=== PATIENT | female | born 1965 | race Caucasian/White ===

== ENCOUNTER 2017-04-03 15:41 | Outpatient (CLI) | payer OTHER ==
--- NOTE | 2017-04-04 16:30 | Mammography Report ---
DIGITAL SCREENING MAMMOGRAM: 04/03/2017 CLINICAL INDICATION: A 51-year-old, for screening. COMPARISON: 09/2010, 12/2008, 05/2007. TECHNIQUE: Routine CC and MLO projections were obtained of the breasts. FINDINGS: The breasts again demonstrate scattered fibroglandular densities bilaterally. A few coarse , typically benign calcifications are present. No suspicious masses, clustered microcalcifications, o r regions of architectural distortion are identified. IMPRESSION: BENIGN FINDINGS. RECOMMENDATION: ROUTINE ANNUAL SCREENING UNLESS OTHERWISE CLINICALLY INDICATED. BIRADS CATEGORY 2-BENIGN FINDINGS. STANDARD QUALIFYING STATEMENTS 1. This examination was reviewed with the aid of Computer-Aided Detection (CAD). 2. A negative or benign imaging report should not delay biopsy if clinically suspicious findings are present. Consider surgical consultation if warranted. More than 5% of cancers are not identified by i maging. 3. Dense breasts may obscure an underlying neoplasm. JOB #: [id number] EXT JOB #:[id number]
== END 2017-04-03 15:42 | disposition home or self-care (01) ==
LOC: DI 15:41
PROVIDERS: ATTEND Internal Medicine
DX: Z12.31 Encounter for screening mammogram for malignant neoplasm of breast (principal)
CPT/HCPCS: 77067

== ENCOUNTER 2017-09-20 06:11 | Day surgery (SDC) | payer OTHER ==
[2017-09-20] MEDS ORDERED: LACTATED RINGERS 1,000 ML IV ONE (06:46)
[2017-09-20] MEDS ORDERED: INSULIN REGULAR HUMAN 100 UNIT/1 ML 10 ML MDV ONE ×2 (07:30→08:37)
[2017-09-20] MEDS ORDERED: fentaNYL 100 MCG/2 ML VIAL IVP ONE (07:34)
[2017-09-20] MEDS ORDERED: MIDAZOLAM 2 MG/2 ML VIAL IVP ONE (07:34)
[2017-09-20 08:50] VITALS: BP 125/58
== END 2017-09-20 06:12 | disposition home or self-care (01) ==
LOC: SDS 06:11
PROVIDERS: ATTEND Surgery
PROC: 0DBN8ZX Excision of Sigmoid Colon, Via Natural or Artificial Opening Endoscopic, Diagnostic (ICD-10-PCS; principal; 2017-09-20 07:30)
DX: R19.7 Diarrhea, unspecified (principal); K57.30 Diverticulosis of large intestine without perforation or abscess without bleeding; K64.8 Other hemorrhoids; K63.5 Polyp of colon; E11.9 Type 2 diabetes mellitus without complications; Z79.4 Long term (current) use of insulin; K21.9 Gastro-esophageal reflux disease without esophagitis; Z87.891 Personal history of nicotine dependence
CPT/HCPCS: 45380; J1815; J7120

== ENCOUNTER 2018-06-26 16:04 | Outpatient (CLI) | payer OTHER ==
--- NOTE | 2018-06-27 09:03 | MRI Report ---
Reason: NECK PAIN Procedure Date: 06/26/2018 Accession Number: [id number] / [id number] Procedure: MRI - Cervical Spine W/O CPT Code: FULL RESULT: EXAM: MRI CERVICAL SPINE WITHOUT CONTRAST EXAM DATE: 06/26/2018 04:43 PM. CLINICAL HISTORY: Neck pain, numbness, and tingling. COMPARISONS: Cervical spine radiography 2 view 06/17/2018 3:43 PM. TECHNIQUE: Multiplanar, multisequence T1-weighted and fluid-sensitive sequences of the cervical spine without contrast. Other: None. FINDINGS: Neurologic Structures: The visualized posterior fossa structures are unremarkable. Slight T2 hyperintense signal within the spinal cord at the C4-C5 and upper C5 levels. No cord enlargement. Alignment: Grade 1 anterolisthesis at C4-C5 by approximately 2 mm. Bone Marrow: Anterior osteophytes from C3-C4 to C6-C7. No acute fracture or bone lesions. Interspace Levels/Facets: The craniocervical junction is unremarkable. C1-C2: Unremarkable. C2-C3: Unremarkable. C3-C4: Small posterior central to left paracentral disk protrusion. Mild canal stenosis. Mild left foraminal stenosis. C4-C5: Small posterior left paracentral-foraminal disk protrusion/osteophyte complex and small posterior right paracentral disk protrusion/osteophyte complex. Mild to moderate canal stenosis and cord impingement. Moderate to severe left and mild to moderate right foraminal stenoses. C5-C6: Minimal disk bulge. Mild canal stenosis. Small uncovertebral joint osteophytes. Moderate to severe left and mild right foraminal stenoses. C6-C7: Minimal disk bulge. Minimal canal narrowing. No foraminal stenoses. C7-T1: Mild to moderate right facet arthropathy. Mild right foraminal stenosis. Musculature: Normal. No edema or fatty atrophy. Other: The paravertebral and prevertebral soft tissues are normal. IMPRESSION: 1. Multilevel degenerative disk changes and osteophytosis. The most significant level is at C4-C5. 2. Small posterior left paracentral-foraminal disk protrusion/osteophyte complex and small posterior right paracentral disk protrusion/osteophyte complex at C4-C5. Mild to moderate canal stenosis and cord impingement. There is slight T2 hyperintense signal within the spinal cord at the C4-C5 and upper C5 levels which may represent myelomalacia and/or edema. There is also moderate to severe left and mild to moderate right foraminal stenoses. 3. Minimal disk bulge at C5-C6. Mild canal stenosis. Moderate to severe left and mild right foraminal stenoses. 4. Small posterior central to left paracentral disk protrusion at C3-C4. Mild canal and left foraminal stenoses. 5. Grade 1 anterolisthesis at C4-C5. RADIA
== END 2018-06-26 16:05 | disposition home or self-care (01) ==
LOC: DI 16:04
PROVIDERS: ATTEND Orthopaedic Surgery
DX: M50.21 Other cervical disc displacement, high cervical region (principal); M47.9 Spondylosis, unspecified; M48.02 Spinal stenosis, cervical region; M43.12 Spondylolisthesis, cervical region; M50.30 Other cervical disc degeneration, unspecified cervical region
CPT/HCPCS: 72141

== ENCOUNTER 2019-07-16 07:59 | Outpatient (CLI) | payer OTHER ==
--- NOTE | 2019-07-16 08:51 | CT Report ---
Reason: HEADACHE Procedure Date: 07/16/2019 Accession Number: [id number] / [id number] Procedure: CT - HEAD WO CPT Code: Final Report FULL RESULT: EXAM: CT HEAD EXAM DATE: 07/16/2019 08:12 AM. CLINICAL HISTORY: HEADACHE. COMPARISON: None. TECHNIQUE: Multiaxial CT images were obtained from the foramen magnum to the vertex. Reformats: Sagittal and coronal. IV contrast: None. In accordance with CT protocol optimization, one or more of the following dose reduction techniques were utilized for this exam: automated exposure control, adjustment of mA and/or KV based on patient size, or use of iterative reconstructive technique. FINDINGS: Parenchyma: No intraparenchymal hemorrhage. No evidence of mass, midline shift, or CT findings of infarction. Bocanegra-white differentiation is distinct. Extraaxial Spaces: Normal for age. No subdural or epidural collections identified. Ventricles: Normal in size and position. Sinuses and Orbits: Imaged paranasal sinuses, orbits, and mastoids show no significant abnormality. Bones: No evidence of fracture or calvarial defect. Other: None. IMPRESSION: Normal head CT. RADIA
== END 2019-07-16 08:00 | disposition home or self-care (01) ==
LOC: DI 07:59
PROVIDERS: ATTEND Internal Medicine
DX: R51 Headache (principal)
CPT/HCPCS: 70450

== ENCOUNTER 2020-09-16 16:28 | Outpatient (CLI) | payer OTHER ==
--- NOTE | 2020-09-16 17:33 | Ultrasound Report ---
PROCEDURE: Duplex Ext Veins Left INDICATIONS: LEFT LEG PAIN, EDEMA TECHNIQUE: Real-time imaging, as well as color and pulse Doppler interrogation, were performed of the lower extr emity deep veins from the inguinal ligament to the popliteal fossa. COMPARISON: None. FINDINGS: The deep veins are normally compressible, and free of intraluminal thrombus. Color and pu lse Doppler demonstrate normal phasic intraluminal flow. There is normal augmentation response to di stal compression maneuver. IMPRESSION: No evidence of deep vein thrombosis involving the right lower extremity. Reviewed by: Scarlet Salgado MD, PhD on 09/16/2020 4:32 PM [facility] Approved by: Scarlet Salgado MD, PhD on 09/16/2020 4:32 PM [facility] Station ID: [id number]
== END 2020-09-16 16:29 | disposition home or self-care (01) ==
LOC: DI 16:28
PROVIDERS: ATTEND Internal Medicine
DX: M79.605 Pain in left leg (principal); R60.9 Edema, unspecified

== ENCOUNTER 2022-02-03 12:02 | Outpatient (CLI) | payer OTHER ==
--- NOTE | 2022-02-03 12:20 | XRAY Report ---
PROCEDURE: Chest 2 View X-Ray INDICATIONS: ACUTE COUGH TECHNIQUE: 2 view(s) of the chest. COMPARISON: None. FINDINGS: Surgical changes and devices: None. Lungs and pleura: No pleural effusions or pneumothorax. Lungs are clear. Mediastinum: Mediastinal contours are normal. Heart size is normal. Bones and chest wall: No suspicious bony abnormalities. Soft tissues appear unremarkable. IMPRESSION: No evidence acute pulmonary process. Reviewed by: Servando Holman MD on 02/03/2022 12:18 PM PDT Approved by: Servando Holman MD on 02/03/2022 12:18 PM PDT Station ID: [id number]
== END 2022-02-03 12:03 | disposition home or self-care (01) ==
LOC: DI 12:02
PROVIDERS: ATTEND Internal Medicine
DX: R05.1 Acute cough (principal); R05.3 Chronic cough

== ENCOUNTER 2022-07-22 11:18 | Outpatient (CLI) | payer OTHER ==
--- NOTE | 2022-07-22 12:50 | XRAY Report ---
PROCEDURE: Chest 2 View X-Ray INDICATIONS: COUGH, COVID TECHNIQUE: 2 views of the chest were acquired. COMPARISON: 02/03/2022 FINDINGS: Surgical changes and devices: Lower cervical spine postoperative change is partially seen. Lungs and pleura: No pleural effusions or pneumothorax. Lungs are clear. Mediastinum: Mediastinal contours are normal. Heart size is normal. Bones and chest wall: No suspicious bony abnormalities. Soft tissues appear unremarkable. IMPRESSION: Clear lungs, without focal infiltrates. If there is strong clinical concern for a developing or new pulmonary process, please consider a shor t-term follow-up 2 view chest series, performed in deep inspiration. Reviewed by: Nabor Fritz MD on 07/22/2022 11:49 AM [facility] Approved by: Nabor Fritz MD on 07/22/2022 11:49 AM [facility] Station ID: [id number]
== END 2022-07-22 11:19 | disposition home or self-care (01) ==
LOC: DI 11:18
PROVIDERS: ATTEND Internal Medicine
DX: U07.1 COVID-19 (principal)

== ENCOUNTER 2024-05-15 14:07 | Outpatient (CLI) | payer OTHER ==
--- NOTE | 2024-05-16 12:13 | Mammography Report ---
BILATERAL DIGITAL SCREENING MAMMOGRAM 3D/2D: 05/15/2024 CLINICAL: Routine screening. Comparison is made to exam dated: 04/03/2017 mammogram - [facility]. The breasts are almost entirely fatty (category a/<25% glandular tissue). There are benign calcifications in the left breast. No significant masses, calcifications, or other findings are seen in either breast. There has been no significant interval change. IMPRESSION: BENIGN There is no mammographic evidence of malignancy. A 1 year screening mammogram is recommended. Based on the Tyrer Cuzick model (a risk assessment model) the patient's lifetime risk is 4.3% and her 10 year risk is 1.6%. According to the ACR, ACS, and NCCN guidelines, an annual breast MRI exam corrie g with mammogram is recommended if the patient's lifetime risk is 20% or greater. This exam was interpreted at Station ID: [id number]. NOTE: For mammograms, a report in lay terms will be sent to the patient. Approximately 15% of breast malignancies will not be visualized mammographically. In the management of a palpable breast mass, a negative mammogram must not discourage biopsy of a clinically suspicious lesion. Electronically Signed By: Meme tyler/vanessa:05/15/2024 17:17:11 letter sent: No_Letter ACR BI-RADS Category 2: Benign PARENCHYMAL PATTERN: (F) - The breast(s) demonstrate(s) diffuse fatty replacement. BI-RADS CATEGORY: (2) - 2 RECOMMENDATION: (ANNUAL) - Recommend routine annual screening mammography. [id number] 1 year screening LATERALITY: (B)
== END 2024-05-15 14:08 | disposition home or self-care (01) ==
LOC: DI 14:07
PROVIDERS: ATTEND Internal Medicine
DX: Z12.31 Encounter for screening mammogram for malignant neoplasm of breast (principal)